=== PATIENT | female | born 1950 ===

== ENCOUNTER 2024-07-10 19:51 | Emergency (ER) | payer MEDICARE, BC ==
[2024-07-10 20:50] LABS: BASOPHILS ABSOLUTE AUTO 0.03 K/uL (0.02-0.10); BASOPHILS PERCENT AUTO 0.5 % (0.0-0.5); EOSINOPHILS ABSOLUTE AUTO 0.16 K/uL (0.04-0.40); EOSINOPHILS PERCENT AUTO 2.9 % (1.0-5.0); HEMATOCRIT 41.2 % (37.0-47.0); HEMOGLOBIN 13.4 g/dL (11.5-16.5); LYMPHOCYTES ABSOLUTE AUTO 2.14 K/uL (1.50-4.00); LYMPHOCYTES PERCENT AUTO 38.7 % (20.0-40.0); MEAN CORPUSCULAR HGB CONC 32.5 g/dL (31.0-35.0); MEAN CORPUSCULAR VOLUME 98 fL (76-96); MEAN PLATELET VOLUME 10.3 fL (6.0-10.0); MONOCYTES ABSOLUTE AUTO 0.51 K/uL (0.20-0.80); MONOCYTES PERCENT AUTO 9.2 % (3.0-10.0); NEUTROPHILS ABSOLUTE AUTO 2.69 K/uL (2.00-7.50); NEUTROPHILS PERCENT AUTO 48.7 % (45.0-70.0); PLATELET COUNT,PLT 238 K/uL (150-500); RED BLOOD CELL COUNT 4.19 M/uL (3.80-5.80); WHITE BLOOD CELL COUNT,WBC 5.5 K/uL (4.0-11.0)
[2024-07-10 20:54] LABS: APPEARANCE,URINE CLOUDY (CLEAR); BILIRUBIN,URINE NEGATIVE (NEGATIVE); COLOR,URINE YELLOW; GLUCOSE,URINE NEGATIVE (NEGATIVE); KETONES,URINE NEGATIVE (NEGATIVE); LEUKOCYTE ESTERASE,URINE MODERATE (NEGATIVE); NITRITE,URINE NEGATIVE (NEGATIVE); OCCULT BLOOD,URINE TRACE-INTACT (NEGATIVE); PROTEIN,URINE NEGATIVE (NEGATIVE); UROBILINOGEN,URINE 0.2 E.U./dL (0.2-1.0)
[2024-07-10 20:55] LABS: RBC,URINE 0-5 /HPF
[2024-07-10 20:56] LABS: SQUAMOUS EPITHELIAL CELLS,UR FEW /HPF
[2024-07-10] MEDS ORDERED: traMADol 50 MG Tab ONE (21:00)
[2024-07-10 21:03] LABS: A/G RATIO 1.3 (0.8-2.0); ALBUMIN 3.8 g/dL (3.4-5.0); ANION GAP 13.7 mmol/L (5.0-15.0); BILIRUBIN TOTAL 0.6 mg/dL (0.0-1.0); BUN/CREATININE RATIO 22.5 (6-25); CALCIUM 9.3 mg/dL (8.5-10.1); CARBON DIOXIDE,CO2 26.2 mmol/L (21.0-32.0); CREATININE 1.02 mg/dL (0.55-1.02); EST CRCL DRUG DOSING (CG) 38.85 mL/min; POTASSIUM,K 3.9 mmol/L (3.5-5.1); PROTEIN TOTAL,TP 6.8 g/dL (6.4-8.2)
[2024-07-10 21:19] LABS: INFLUENZA A NAA NEGATIVE (NEGATIVE); INFLUENZA B NAA NEGATIVE (NEGATIVE); RESPIRATORY SYNCYTIAL VIR NAA NEGATIVE (NEGATIVE)
[2024-07-10 21:20] LABS: CORONAVIRUS COVID-19 NAA NEGATIVE (NEGATIVE)
[2024-07-10] MEDS: Ketorolac 30 MG/ML SDV IM ONE (21:44)
[2024-07-10 22:03] VITALS: BP 146/78; PULSE 60
== END 2024-07-10 21:50 | disposition home or self-care (01) ==
LOC: LB.ED 19:51
DX: R10.13 Epigastric pain (principal); R10.11 Right upper quadrant pain; I10 Essential (primary) hypertension; Z88.8 Allergy status to other drugs, medicaments and biological substances; Z96.611 Presence of right artificial shoulder joint; Z96.612 Presence of left artificial shoulder joint; Z96.659 Presence of unspecified artificial knee joint; Z79.899 Other long term (current) drug therapy
CPT/HCPCS: 0241U; 36415; 80053; 81001; 83690; 85025; 96372; 99284; A9270-GY; J1885